=== PATIENT | male | born 1950 | race Caucasian/White ===

== ENCOUNTER 2018-01-29 05:31 | Outpatient (CLI) | payer OTHER ==
[~2018-01-29] VITALS: Ht 182.9 cm; Wt 92.5 kg
[2018-01-29] MEDS ORDERED: OXYC30TA80 PO (12:11)
== END 2018-01-29 12:12 ==
LOC: PREOP 05:31
PROVIDERS: ATTEND Surgery
DX: Z01.818 Encounter for other preprocedural examination (principal)

== ENCOUNTER 2018-02-05 10:33 | Day surgery (SDC) | payer OTHER ==
[~2018-02-05] VITALS: Ht 162.6 cm; Wt 94.3 kg
[~2018-02-05 10:33] MED LIST: OXYC30TA80 PO
[2018-02-05] MEDS ORDERED: NS IV 500 ML 500 ML ONE (10:41)
[2018-02-05] MEDS ORDERED: NS IV 500 ML 500 ML IV PRN (10:43)
[2018-02-05] MEDS ORDERED: LIDOCAINE JELLY 2% (XYLOCAINE) 5 ML TUBE MM PRN (10:45)
[2018-02-05 10:53] VITALS: BP 137/93
[2018-02-05] MEDS ORDERED: LIDOCAINE JELLY 2% (XYLOCAINE) 5 ML TUBE ONE (11:46)
[2018-02-05] MEDS ORDERED: fentaNYL INJECTION 100 MCG/2 ML AMP ONE ×2 (11:46)
[2018-02-05] MEDS ORDERED: MIDAZOLAM 2 MG/2 ML (VERSED) VIAL ONE ×6 (11:46→11:47)
--- NOTE | 2018-02-05 11:59 | Conscious Sedation/ASA ---
Conscious Sedation Pre-Proced Time Reviewed: 11:30 ASA Class: 2 Airway Mallampati Classification: ([place] appropriate class) I. II. III, IV Lungs Heart ASA score ASA 1: a normal healthy patient ASA 2: a patient with a mild systemic disease (mid diabetes, controlled hypertension, obesity ASA 3: a patient with a severe systemic disease that limits activity (angina , COPD, prior Myocardial infarction) ASA 4: a patient with an incapacitating disease that is a constant threat to life (CHF, renal failure) ASA 5: a moribund patient not expected to survive 24 hrs. (ruptured aneurysm) ASA 6: a declared brain patient whose organs are being harvested. For emergent operations, add the letter E after the classification Grade 2 Sedation Plan: Analgesia, Amnesia, Plan communicated to team members, Discussed options with patient/fam, Discussed risks with patient/fam Note The patient is an appropriate candidate to undergo the planned procedure, sedation, and anesthesia. The patient immediately re-assessed prior to indication. ILEANA KEENAN MD Feb 05, 2018 11:58 am
--- NOTE | 2018-02-05 11:59 | Progress Note-Pre Operative ---
Pre-Operative Progress Note H&P Reviewed The H&P was reviewed, patient examined and no changes noted. Date Seen by Provider: Feb 05, 2018 Time Seen by Provider: 11:30 Date H&P Reviewed: Feb 05, 2018 Time H&P Reviewed: 11:30 Pre-Operative Diagnosis: screening colonoscopy ILEANA KEENAN MD Feb 05, 2018 11:59 am
[2018-02-05] MEDS ORDERED: ONDANSETRON 4 MG/2 ML (SDV) Z0FRAN IV PRN (12:00)
[2018-02-05] MEDS ORDERED: morphine INJ 10 MG/ML 1ML (SYR OR VIAL) IV PRN (12:00)
[2018-02-05] MEDS ORDERED: ACETAMINOPHEN 325 MG TABLET PO PRN (12:00)
[2018-02-05] MEDS ORDERED: HYDROcodone/APAP 5 MG/325 MG (LORTAB) TAB PO PRN (12:00)
[2018-02-05] MEDS: MIDAZOLAM 2 MG/2 ML (VERSED) VIAL IVP PRN ×5 (12:10→12:22)
[2018-02-05] MEDS: fentaNYL INJECTION 100 MCG/2 ML AMP IVP PRN ×4 (12:11→12:20)
--- NOTE | 2018-02-05 12:37 | Progress Note-Post Operative ---
Post-Operative Progess Note Surgeon (s)/Copying Machine Repairer (s) Surgeon ILEANA KEENAN MD Copying Machine Repairer: none Pre-Operative Diagnosis screening colonoscopy Post-Operative Diagnosis chronic stage 2 ext and int hemorrhoids. Procedure & Operative Findings Date of Procedure 02/05/18 Procedure Performed/Findings Colonoscopy. Anesthesia Type CS Estimated Blood Loss Estimated blood loss (mL): minimal Specimens/Packing Specimens Removed none ILEANA KEENAN MD Feb 05, 2018 12:37 pm
--- NOTE | 2018-02-05 12:39 | Discharge Inst-Surgical ---
D/C Lap Instructions-REE Follow Up 5 years Activity as tolerated High Fiber Diet 25g or more per day Avoid Alcohol, Caffeine, Spicy [place] and Acid foods. Drink 64 fluid oz or more of fluids per day. Symptoms to Report: Fever over 101 degree F, Nausea/Vomiting If any problems/questions: Contact your physician or go to Emergency Room ILEANA KEENAN MD Feb 05, 2018 12:39 pm
[2018-02-05 12:55] VITALS: BP 123/74
[2018-02-05 13:24] VITALS: BP 115/76
[2018-02-05 13:25] VITALS: BP 115/76
--- NOTE | 2018-02-05 19:56 | OPERATIVE REPORT ---
DATE OF SERVICE: 02/05/2018 ATTENDING PRIMARY CARE PHYSICIAN: Dr. Melendez. PREOPERATIVE DIAGNOSES: Screening colonoscopy with family history of colon cancer as well as a family history of breast cancers. POSTOPERATIVE DIAGNOSES: Chronic stage II external and internal hemorrhoids. Remainder of the rectum and colon were normal. PROCEDURE: Colonoscopy. SURGEON: Ileana Keenan M.D. ANESTHESIA: Conscious sedation. ESTIMATED BLOOD LOSS: Minimal. FINDINGS: Chronic stage II external and internal hemorrhoids, not actively edematous nor inflamed and no bleeding. The remainder of the rectum and colon were normal. There were no polyps or any neoplasms identified. DISPOSITION: The patient tolerated the procedure well. INDICATIONS: The patient is a 67-year-old male, referred over to us for a screening colonoscopy. His last colonoscopy was approximately in 2004 and he believes that to be normal. He states that he is doing well with no major issues with diarrhea nor constipation as well as no red blood per rectum nor any dark tarry stools. He does report signs and symptoms of irritable bowel syndrome, which is more constipation predominant. He does have a family history of cancers including colon cancer with his brother being diagnosed with the disease at age 59. He also has a sister with breast cancer diagnosed in her late 60s. DESCRIPTION OF PROCEDURE: The patient was brought to the endoscopy suite, laid in the left lateral decubitus position. After adequate IV pain and sedating medications and conscious sedation anesthesia, a digital rectal examination was performed. Mild chronic stage II external and internal hemorrhoids were identified, which were not actively edematous nor inflamed and no bleeding. Normal sphincter tone was felt and there were no palpable masses. The endoscope was then intubated to the anus and rectum gently insufflated. The endoscope was then advanced through the valves of [place] of the rectum with no polyps or any neoplasms identified. The endoscope was then advanced through the sigmoid colon where no diverticulosis identified. The endoscope was then advanced to the remainder of the descending, transverse, ascending colon to the cecum. These segments were normal. There were no polyps or any neoplasms identified throughout the colon or rectum. The endoscope was then slowly withdrawn while taking a second look and suctioning of residual air with no additional findings. The patient tolerated the procedure well. We will recommend continued medical management with a high fiber diet with at least 30 grams of fiber per day as well as at least 64 fluid ounces of water daily to promote soft stools on a daily basis. Due to his first degree family history of colon cancer, we will recommend a followup colonoscopy in 5 years. Job ID: [id number] DocumentID: [id number] Dictated Date: 02/05/2018 12:33:08 Peer Support Specialist Date: 02/05/2018 19:56:00 Dictated By: ILEANA KEENAN MD
--- OUTSIDE RECORDS SUMMARY | 2018-02-06 03:48 | XMS REPORT ---
Author Author FEDERICO ELLIS Organization [facility] Address [address] [place] [address] Phone Unavailable Care Team Providers Care Regional Trainer Name Role Phone FEDERICO ELLIS Unavailable Unavailable PROBLEMS Unknown Problems ALLERGIES Substance Reaction Event Type Date Status Codine stomach upset Non Drug Allergy Sep, Active ENCOUNTERS Encounter Location Date Diagnosis [facility] [address] [facility] [id number] [address] Sep, IMMUNIZATIONS No Known Immunizations SOCIAL HISTORY Never Assessed REASON FOR VISIT LHI-DBQ Bilateral shoulder/arm and bilateral knees--FREDERIC PLAN OF CARE VITAL SIGNS Height 62 in 2017-09-15 Weight 210 lbs 2017-09-15 Temperature 98.2 degrees Fahrenheit 2017-09-15 Heart Rate 82 bpm 2017-09-15 Respiratory Rate 18 2017-09-15 Oximetry 98 % 2017-09-15 BMI 38.41 kg/m2 2017-09-15 Blood pressure systolic 120 mmHg 2017-09-15 Blood pressure diastolic 70 mmHg 2017-09-15 MEDICATIONS Medication Instructions Dosage Frequency Start Date End Date Duration Status Oxycodone HCl 30 MG Orally every 4 hours as needed 1 tablet Active RESULTS No Results PROCEDURES No Known procedures INSTRUCTIONS MEDICATIONS ADMINISTERED No Known Medications MEDICAL (GENERAL) HISTORY Type Description Date Medical History Past history of HTN Surgical History Left shoulder arthroscopic surgery 2005
== END 2018-02-05 13:25 | disposition home or self-care (01) ==
LOC: ENDO 10:33
PROVIDERS: ATTEND Surgery
DX: Z12.11 Encounter for screening for malignant neoplasm of colon (principal); K64.1 Second degree hemorrhoids; Z80.0 Family history of malignant neoplasm of digestive organs; Z85.3 Personal history of malignant neoplasm of breast; I10 Essential (primary) hypertension; K58.1 Irritable bowel syndrome with constipation; F17.210 Nicotine dependence, cigarettes, uncomplicated

== ENCOUNTER → 2023-04-14 | Outpatient (CLI) | payer OTHER ==
[~2023-04-14] MED LIST changes: +OXYC-527 PO; -OXYC30TA80 PO
--- NOTE | 2023-04-14 12:24 | Diagnostic Imaging Report ---
PROCEDURE: CT head and neck without contrast. TECHNIQUE: Contiguous axial images were obtained from the skull base through the vertex. Noncontrast axial images were then obtained of the soft tissue of the neck. Auto Exposure Controls were utilized during the CT exam to meet ALARA standards for radiation dose reduction. INDICATION: Left sided headache Comparison: none Findings: The brain parenchyma is normal in attenuation. No intra- or extra-axial mass or fluid collection. No acute hemorrhage. The ventricles are normal in size, shape, and morphology. The knight-white matter junction is normal. The subarachnoid cisterns are patent. Mucosal thickening within the left maxillary and left ethmoid sinus. The visualized portions of the orbits and globes are normal. The mastoid air cells are clear. The graphic design assistant topogram shows no lytic lesion or fracture. Enlargement of the left submandibular gland with fat stranding within the subcutaneous tissue of the left face near the mandible and left parotid gland. No drainable fluid collections identified. Mildly enlarged bilateral cervical chain lymph nodes and submandibular lymph nodes which are likely reactive. The parotid, and thyroid glands are normal. The unenhanced vessels of the neck are normal. The visualized aerodigestive tract is normal. The visualized posterior fossa and brain is normal. The visualized orbits and paranasal sinuses are normal. The cervical spine is normal. Demonstrate biapical scarring and emphysema. Impression: Enlargement of the left submandibular gland with fat stranding within the subcutaneous tissue of the left face near the mandible and left parotid gland. No drainable fluid collections identified. This may be seen with cellulitis with reactive changes of the left submandibular gland, infectious or inflammatory sialoadenitis. Other etiologies would include soft tissue trauma. Recommend clinical correlation and consider follow-up imaging surveillance to ensure there is no underlying neoplasm. No acute intracranial hemorrhage. No large vascular territory tang-white loss. No intracranial mass, midline shift, or hydrocephalus. Dictated by: Dictated on workstation # [id number]
== END ==
LOC: RAD 08:02
PROVIDERS: ATTEND Family Medicine
DX: R59.9 Enlarged lymph nodes, unspecified (principal); R51.9 Headache, unspecified
CPT/HCPCS: 70450; 70490

== ENCOUNTER → 2023-05-29 | Outpatient (CLI) | payer OTHER ==
--- NOTE | 2023-05-29 12:11 | Diagnostic Imaging Report ---
CT CHEST SCREENING WO TECHNIQUE: Low-dose unenhanced CT of the chest was performed according to the screening protocol. Coronal MIP and sagittal MPR reformats are created. Automatic exposure controls were utilized to keep dose as low as reasonably achievable. INDICATION: Greater than 20 pack-year history of smoking. COMPARISON: None available. FINDINGS: Pulmonary findings: Multiple areas of retained secretions are present throughout the lungs. Moderate centrilobular emphysema is noted. In the right apex there is a 1.6 x 1.4 cm subpleural nodule which is somewhat linear. Within the left upper lobe, there is a thick-walled 1.5 x 1.4 cm nodule with surrounding reticulations and central air-filled cavitation. Left lower lobe peribronchial thickening with centrilobular micronodules. Extrapulmonary findings: No pericardial or pleural effusion. Axillary lymphadenopathy. Borderline enlarged subcarinal lymph node. Heart is normal in size. Normal caliber thoracic aorta. Limited assessment upper abdomen is unremarkable. IMPRESSION: 1. Left upper lobe cavitary nodule could represent a primary lung cancer versus sequelae of infection. Pulmonology consultation is recommended for further management. 2. Right upper lobe subpleural nodule could represent asymmetric scarring. Alternatively, primary lung cancer could have this appearance. Therefore, colonoscopy recommendations are advised to determine further management. 3. Left lower lobe consolidation and peribronchial thickening may be due to aspiration, pneumonia and/or chronic bronchitis. Lung-RADS category: 4A - Suspicious Dictated by: Dictated on workstation # [id number]
== END ==
LOC: RAD 09:57
PROVIDERS: ATTEND Family Medicine
DX: Z12.2 Encounter for screening for malignant neoplasm of respiratory organs (principal); R91.8 Other nonspecific abnormal finding of lung field; J18.1 Lobar pneumonia, unspecified organism; J98.4 Other disorders of lung; Z87.891 Personal history of nicotine dependence
CPT/HCPCS: 71271

== ENCOUNTER 2023-06-10 08:14 | Outpatient (CLI) | payer OTHER ==
[~2023-06-10] VITALS: Ht 157.9 cm; Wt 81.6 kg
[2023-06-11] MEDS ORDERED: OMEG10005 PO (14:53)
[2023-06-11] MEDS ORDERED: DULO30CA49 PO (14:53)
[2023-06-11] MEDS ORDERED: BUDE10.7 IH (14:53)
[2023-06-11] MEDS ORDERED: BUSP15TA60 PO (14:53)
== END 2023-06-11 14:55 | disposition home or self-care (01) ==
LOC: PREOP 08:14
PROVIDERS: ATTEND Surgery
DX: Z01.818 Encounter for other preprocedural examination (principal)